=== PATIENT | female | born 1940 | race Caucasian/White ===

== ENCOUNTER → 2021-07-03 13:05 | Outpatient (CLI) | payer MEDICARE, SELFPAY ==
--- NOTE | 2021-07-03 13:05 | MR_ITS ---
PROCEDURE INFORMATION: Exam: MR Lumbar Spine Without Contrast Exam date and time: 07/03/2021 1:05 PM Age: 80 years old Clinical indication: Low back pain; Additional info: Lumbar stenosis. Trouble walking. Lbp worse on RT side. Lt leg pain, numbness, and tingling xyrs. Sent over best images. TECHNIQUE: Imaging protocol: Multiplanar magnetic resonance images of the lumbar spine without intravenous contrast. COMPARISON: No relevant prior studies available. FINDINGS: alignment is grossly normal. signal intensity within the bone marrow is normal. conus terminates at the mid aspect of L1. Soft tissues are unremarkable. Severe diffuse degenerative disc disease throughout the lumbar spine Chronic pars defect L5 suspected. No spondylolisthesis. Severe multilevel central canal narrowing Severe narrowing of the neural foramina L5-S1 bilaterally, L3-L4 and L4-L5 bilaterally T11-T12: Broad-based annular disc bulge. Central canal and neural foramina normal. T12-L1: Broad-based annular disc bulge effaces the anterior aspect of the thecal sac mildly so. Central canal and neural foramina are widely patent. L1-L2: Broad-based annular disc bulge effaces the anterior aspect of the thecal sac mildly so. Central canal is normal. L2-L3: Mild narrowing of the central canal secondary to facet hypertrophic changes, ligamentum flavum hypertrophic changes, and a broad-based annular bulge. Disc lateralizes to the right and left with paucity of fat about the exiting nerve roots L3-L4: Severe narrowing of the central canal secondary to facet hypertrophic changes, ligamentum flavum hypertrophic changes, and a broad-based annular bulge. L4-L5: Severe narrowing of the central canal secondary to facet hypertrophic changes, ligamentum flavum hypertrophic changes, and a broad-based annular bulge. L5-S1: Severe narrowing of the central canal secondary to facet hypertrophic changes, ligamentum flavum hypertrophic changes, and a broad-based annular bulge. Severe narrowing of the right and left neural foramina IMPRESSION: Severe diffuse degenerative disc disease with severe narrowing of the central canal at multiple levels. See above.
== END ==
PROVIDERS: PCP Physician Assistant; Visit Provider Physician Assistant
DX: M48.061 Spinal stenosis, lumbar region without neurogenic claudication (principal)
CPT/HCPCS: 72148; 76376

== ENCOUNTER → 2021-07-30 09:51 | Outpatient (POV) | payer MEDICARE, SELFPAY ==
[2021-07-30 10:27] VITALS: BP 161/84; PULSE 84; RESP 18; O2SAT 96; BMI 23.6
--- NOTE | 2021-07-30 10:28 | HMH.PMCON ---
Assessment and Plan (1) Degenerative disc disease, lumbar Status: Acute Category: Medical Code(s): M51.36 - Other intervertebral disc degeneration, lumbar region (2) Facet arthropathy, lumbar Status: Acute Category: Medical Code(s): M47.816 - Spondylosis without myelopathy or radiculopathy, lumbar region (3) Ligamentum flavum hypertrophy Status: Acute Category: Medical Code(s): M24.28 - Disorder of ligament, vertebrae (4) Spinal stenosis of lumbar region at multiple levels Status: Acute Category: Medical Code(s): M48.061 - Spinal stenosis, lumbar region without neurogenic claudication - Assessment and plan all Dx Assessment and Plan for all problems:: Ordering Physician: Ashanti Huang Date of Service: 07/03/21 Procedure(s): MR lumbar spine wo con Accession Number(s): [id number] cc: Da Chambers MD; Ashanti Huang~ PROCEDURE INFORMATION: Exam: MR Lumbar Spine Without Contrast Exam date and time: 07/03/2021 1:05 PM Age: 80 years old Clinical indication: Low back pain; Additional info: Lumbar stenosis. Trouble walking. Lbp worse on RT side. Lt leg pain, numbness, and tingling xyrs. Sent over best images. TECHNIQUE: Imaging protocol: Multiplanar magnetic resonance images of the lumbar spine without intravenous contrast. COMPARISON: No relevant prior studies available. FINDINGS: alignment is grossly normal. signal intensity within the bone marrow is normal. conus terminates at the mid aspect of L1. Soft tissues are unremarkable. Severe diffuse degenerative disc disease throughout the lumbar spine Chronic pars defect L5 suspected. No spondylolisthesis. Severe multilevel central canal narrowing Severe narrowing of the neural foramina L5-S1 bilaterally, L3-L4 and L4-L5 bilaterally T11-T12: Broad-based annular disc bulge. Central canal and neural foramina normal. T12-L1: Broad-based annular disc bulge effaces the anterior aspect of the thecal sac mildly so. Central canal and neural foramina are widely patent. L1-L2: Broad-based annular disc bulge effaces the anterior aspect of the thecal sac mildly so. Central canal is normal. L2-L3: Mild narrowing of the central canal secondary to facet hypertrophic changes, ligamentum flavum hypertrophic changes, and a broad-based annular bulge. Disc lateralizes to the right and left with paucity of fat about the exiting nerve roots L3-L4: Severe narrowing of the central canal secondary to facet hypertrophic changes, ligamentum flavum hypertrophic changes, and a broad-based annular bulge. L4-L5: Severe narrowing of the central canal secondary to facet hypertrophic changes, ligamentum flavum hypertrophic changes, and a broad-based annular bulge. L5-S1: Severe narrowing of the central canal secondary to facet hypertrophic changes, ligamentum flavum hypertrophic changes, and a broad-based annular bulge. Severe narrowing of the right and left neural foramina IMPRESSION: Severe diffuse degenerative disc disease with severe narrowing of the central canal at multiple levels. See above. Per the MRI, patient has multilevel ligamentum flavum hypertrophic changes with severe narrowing of the central canal. Patient's symptoms correlates with the imaging for spinal stenosis caused by ligamentum flavum hypertrophy. We will schedule the patient for a lumbar epidural steroid injection with epiduragram. I discussed with the patient that she could be a good candidate for a minimally invasive lumbar decompression however this will be based on the epidurogram. Patient is currently not on any blood thinners. Risks and benefits of the procedure have been explained to the patient. Patient would like to proceed with the procedure. Patient has been instructed to contact the clinic with any concerns before the next appointment. Dr. Conway has
== END ==
PROVIDERS: Visit Provider Clinical Nurse Specialist Family Health
DX: M51.36 Other intervertebral disc degeneration, lumbar region (principal); M47.816 Spondylosis without myelopathy or radiculopathy, lumbar region; M24.28 Disorder of ligament, vertebrae; M48.061 Spinal stenosis, lumbar region without neurogenic claudication
CPT/HCPCS: 99202; G0463

== ENCOUNTER 2021-08-12 09:25 | Day surgery (SDC) | payer MEDICARE, SELFPAY ==
[2021-08-12 09:28] VITALS: BP 152/70; PULSE 86; RESP 20; TEMP 36.6; O2SAT 98; BMI 22.9
[2021-08-12 09:45] VITALS: BP 139/70; PULSE 82; RESP 18; O2SAT 99
[2021-08-12 09:46] VITALS: BP 148/76; PULSE 80; RESP 18; O2SAT 99
--- NOTE | 2021-08-12 09:55 | HMH.PMPROC ---
- Procedure Date: 08/12/21 Time: 09:55 Anesthesiologist:: Steve Conway MD Complications:: None Pre-procedure Diagnosis:: Degenerative disc disease of lumbar spine with lumbar radiculopathy symptoms and lumbar spinal stenosis with neurogenic claudication symptoms Post-procedure Diagnosis:: Same Indications for Procedure:: Patient is a pleasant 80-year-old white female who we are treating for low back pain with lumbar radiculopathy symptoms and lumbar spinal stenosis with neurogenic claudication symptoms. She has increasing low back pain and leg pain especially while standing and walking. She has severe degenerative changes with significant ligamentum flavum hypertrophy and severe spinal stenosis at L3-4 and L4-L5. We will plan on doing a lumbar epidural steroid injection with epidurogram to assess levels of stenosis and candidacy for minimally invasive lumbar decompression. Procedure Details:: Informed consent was obtained and the risk and benefits of the procedure was explained to the patient. The patient was taken to the procedure room. The patient was placed prone on the procedure table. The patient was prepped and draped in sterile fashion. C-arm fluoroscopy was used to view the lumbar spine. Skin and subcutaneous tissues were anesthetized using lidocaine. I placed an 18-gauge epidural needle and advanced into the L4-L5 interspace using fluoroscopic guidance and [id number] to air. After confirmation of needle placement in the epidural space with dye I injected 2 mL of lidocaine 1.5% with Depo-Medrol 80 mg. Patient tolerated the procedure well with no complications. Plan and Disposition:: Based on epidurogram she does have significant stenosis at L3-L4 and L4-L5 bilaterally. She is a candidate for minimally invasive lumbar decompression bilateral L3-L4 and L4-L5. We will seek approval for bilateral minimally invasive lumbar decompression at L3-L4 and L4-L5. We will not do a lumbar epidural steroid injection at this procedure as it was very difficult to access the epidural space.
[2021-08-12 10:04] VITALS: BP 136/76; PULSE 77; RESP 20; O2SAT 98
== END 2021-08-12 10:05 | disposition home or self-care (01) ==
LOC: SC.PAINP 09:26
PROVIDERS: PCP Physician Assistant; Visit Provider Anesthesiology
DX: M51.16 Intervertebral disc disorders with radiculopathy, lumbar region (principal); M48.062 Spinal stenosis, lumbar region with neurogenic claudication; E78.5 Hyperlipidemia, unspecified; I10 Essential (primary) hypertension; K21.9 Gastro-esophageal reflux disease without esophagitis; M19.90 Unspecified osteoarthritis, unspecified site
CPT/HCPCS: 62323; J1040; Q9966

== ENCOUNTER → 2021-09-01 09:24 | Outpatient (POV) | payer MEDICARE, SELFPAY ==
[2021-09-01 09:40] VITALS: BP 127/78; PULSE 103; RESP 18; O2SAT 97; BMI 22.3
--- NOTE | 2021-09-01 09:50 | HMH.PAINSOAP ---
[facility] Pain Management SOAP Note Subjective:: Patient is an 80-year-old white female who presents today for follow-up. She recently had a lumbar epidural steroid injection with epidurogram. She got 100% relief and is not having any pain today. Patient was worked up for possible mild procedure and was deemed an appropriate candidate at L3-L4 L4-L5. Patient says because she got significant relief with that she would like to postpone any further treatment until her pain does return. She rates her pain a 0 out of 10 at this time. Review of Systems General: No recent weight changes, no fever, no sleep disturbances Respiratory: No cough, no shortness of air, no recurring pulmonary infections Cardiovascular/peripheral vascular: No chest pain, no palpitations, no edema, no shortness of breath Gastrointestinal: No new onset incontinence, normal bowel movements reported Genitourinary: No new onset incontinence Musculoskeletal: No pain at this time Psychiatric: [Normal mood/affect] Neurological: [Denies weakness in extremities], [denies balance issues] Objective:: Physical exam General: Alert and oriented x3, no acute distress, pleasant and cooperative Lungs: Respirations even and unlabored, symmetrical chest expansion Eyes: PERRL Musculoskeletal: Flexion and extension of [] [spine] non guarded Neurological: Speech clear, no gross sensory deficit Assessment:: Degenerative disc disease lumbar spine with lumbar radiculopathy symptoms, spinal stenosis with neurogenic claudication symptoms Plan:: Patient got 100% relief of low back pain and bilateral lower extremity pain. She is doing well at this time. She does not want to proceed with the mild procedure due to significant relief with injective therapy. We will schedule her for 3-month follow-up. If pain does return before that appointment she can contact clinic. Patient has been instructed to contact the clinic with any concerns before the next appointment. Dr. Conway has reviewed this note and agrees with this plan of care. This note was dictated using voice recognition software and make contain errors or omissions. [facility] History I have reviewed the patient's past medical history: Yes Medical History: Reports:: Gastroesophageal Reflux Disease(GERD), Hyperlipidemia, Hypertension, Renal Insufficiency Denies:: Cancer, Diabetes Mellitus Type 1, Diabetes Mellitus Type 2, Internal Pacemaker, MRSA, Seizures *Have you ever received a pneumonia vaccine?: Yes *Have you received a flu vaccine this season?: Yes Other Medical History: Reports: Arthritis Laterality Cases: Right: Total Hip Replacement Other Surgeries: No: Pacemaker Amputation: No Fractures: Yes (left wrist) - *Social History Smoking Status: Never smoker Alcohol Intake: never Substance Use Type: denies use *Occupational Status:: unemployed Housing: house Household Members: other *Travel in the last 8 weeks: None Family Hx:: Heart Attack, Hypertension, Kidney Disease
== END ==
PROVIDERS: Visit Provider Clinical Nurse Specialist Family Health
DX: M51.16 Intervertebral disc disorders with radiculopathy, lumbar region (principal); M48.062 Spinal stenosis, lumbar region with neurogenic claudication
CPT/HCPCS: 99212; G0463

== ENCOUNTER → 2021-11-30 09:13 | Outpatient (POV) | payer MEDICARE, SELFPAY ==
[2021-11-30 09:20] VITALS: BP 111/78; PULSE 97; RESP 18; TEMP 36.9; O2SAT 97; BMI 23.6
--- NOTE | 2021-11-30 10:54 | P.CONS_ITS ---
[facility] Pain Management SOAP Note Subjective:: Patient is a pleasant 81-year-old female who presents today for follow-up. Patient is currently being treated for degenerative disc disease of lumbar spine with lumbar radiculopathy symptoms, spinal stenosis with neurogenic claudication. Patient is currently being managed with injective therapy and tramadol. When we last saw this patient, she had a lumbar epidural steroid injection with epidurogram that provided 100% relief. Based on her epidurogram, patient is a good candidate for a minimally invasive lumbar decompression at L3- L4 and L4-L5. Today, patient presents with continue his relief after the injection. She states that she slowly started to feel some pain but it is still tolerable. She rates her pain today as 0 out of 10. [facility] #[id number] with an active morphine equivalent of 15. Review of Systems: General: No recent weight changes, no fever, no sleep disturbances Respiratory: No cough, no shortness of air, no recurring pulmonary infections Cardiovascular/peripheral vascular: No chest pain, no palpitations, no edema, no shortness of breath Gastrointestinal: No new onset incontinence, normal bowel movements reported Genitourinary: No new onset incontinence Musculoskeletal: Low back pain Psychiatric: [Normal mood/affect] Neurological: [Denies weakness in extremities], [denies balance issues] Objective:: Physical Exam: General: Alert and oriented x3, no acute distress, pleasant and cooperative, [on room air] Lungs: Respirations even and unlabored, symmetrical chest expansion Eyes: PERRL Musculoskeletal: Flexion and extension of lumbar [spine] somewhat guarded secondary to pain, [antalgic gait noted] Neurological: Speech clear, no gross sensory deficit Assessment:: Degenerative disc disease of the lumbar spine with lumbar radiculopathy symptoms Spinal stenosis with neurogenic claudication Plan:: Patient had a lumbar epidural steroid injection with epidurogram 3 months ago. Patient had significant relief of about 100% after the injection. Based on her epidurogram, patient is a good candidate for a minimally invasive lumbar decompression procedure at L3-L4 and L4-L5. At the moment, patient states that she is still doing well after the injection. We will see her in 1 month to see if she needs a repeat injection. Patient has been instructed to contact the clinic with any concerns before the next appointment. Dr. Conway has reviewed this note and agrees with this plan of care. This note was dictated using voice recognition software and make contain errors or omissions. [facility] History Medical History: Reports:: Gastroesophageal Reflux Disease(GERD), Hyperlipidemia, Hypertension, Renal Insufficiency Denies:: Cancer, Diabetes Mellitus Type 1, Diabetes Mellitus Type 2, Internal Pacemaker, MRSA, Seizures *Have you ever received a pneumonia vaccine?: Yes *Have you received a flu vaccine this season?: Yes Other Medical History: Reports: Arthritis Laterality Cases: Right: Total Hip Replacement Other Surgeries: No: Pacemaker Amputation: No Fractures: Yes (left wrist) - *Social History Smoking Status: Never smoker Alcohol Intake: never Substance Use Type: denies use *Occupational Status:: retired Housing: house Household Members: other *Travel in the last 8 weeks: None Family Hx:: Heart Attack, Hypertension, Kidney Disease
== END ==
PROVIDERS: Visit Provider Student in an Organized Health Care Education/Training Program
DX: M51.16 Intervertebral disc disorders with radiculopathy, lumbar region (principal); M48.00 Spinal stenosis, site unspecified; I73.9 Peripheral vascular disease, unspecified
CPT/HCPCS: 99212; G0463

== ENCOUNTER → 2021-12-31 08:31 | Outpatient (POV) | payer MEDICARE, SELFPAY ==
[2021-12-31 08:46] VITALS: BP 116/64; PULSE 85; RESP 18; TEMP 36.7; O2SAT 96; BMI 23.4
--- NOTE | 2021-12-31 09:48 | HMH.PAINSOAP ---
[facility] Pain Management SOAP Note Subjective:: Patient is a pleasant 81-year-old female who presents today for follow-up. Patient is current being treated for degenerative disc disease of lumbar spine with lumbar radiculopathy symptoms, spinal stenosis with neurogenic claudication. Patient is currently being managed with injective therapy and tramadol. Patient typically gets 100% relief from each lumbar epidural steroid injection. When we last saw this patient, she had a lumbar epidural steroid injection with epidurogram. She was found to be a good candidate for minimally invasive lumbar decompression at L3-L4 and L4-L5. Today, patient presents with worsening low back pain that radiates to bilateral lower extremities. She reports heaviness on bilateral lower extremities whenever she walks. She has a positive shopping cart sign sign. Rates her pain as 6 out of 10. She wants to know if she can get scheduled for an injection. Xavier [phone] with an active morphine equivalent of 0. Review of Systems: General: No recent weight changes, no fever, no sleep disturbances Respiratory: No cough, no shortness of air, no recurring pulmonary infections Cardiovascular/peripheral vascular: No chest pain, no palpitations, no edema, no shortness of breath Gastrointestinal: No new onset incontinence, normal bowel movements reported Genitourinary: No new onset incontinence Musculoskeletal: Low back pain Psychiatric: [Normal mood/affect] Neurological: [Denies weakness in extremities], [denies balance issues] Objective:: Physical Exam: General: Alert and oriented x3, no acute distress, pleasant and cooperative Lungs: Respirations even and unlabored, symmetrical chest expansion Eyes: PERRL Musculoskeletal: Flexion and extension of lumbar [spine] somewhat guarded secondary to pain, [antalgic gait noted] Neurological: Speech clear, no gross sensory deficit Assessment:: Degenerative disc disease of the lumbar spine with lumbar radiculopathy symptoms Spinal stenosis with neurogenic claudication Plan:: We have been managing this patient's low back pain with injective therapy. She gets 100% relief after each lumbar epidural steroid injection. She had epidurogram at her last injection. She was found to be a good candidate for a minimally invasive lumbar decompression procedure bilaterally at L3-L4 and L4-L5. She has a positive shopping cart syndrome. She feels heaviness on bilateral legs whenever she walks for longer periods of time. We will schedule the patient for a repeat lumbar epidural steroid injection at L4-L5. Risks and benefits of the procedure have been explained to the patient. Patient would like to proceed with the procedure. Patient is not on any blood thinners. With the patient get significant relief again with this injection, we will schedule the patient for a minimally invasive lumbar decompression procedure bilaterally at L3-L4 and L4-L5. Patient has been instructed to contact the clinic with any concerns before the next appointment. Dr. Conway has reviewed this note and agrees with this plan of care. This note was dictated using voice recognition software and make contain errors or omissions. [facility] History Medical History: Reports:: Gastroesophageal Reflux Disease(GERD), Hyperlipidemia, Hypertension, Renal Insufficiency Denies:: Cancer, Diabetes Mellitus Type 1, Diabetes Mellitus Type 2, Internal Pacemaker, MRSA, Seizures *Have you ever received a pneumonia vaccine?: Yes *Have you received a flu vaccine this season?: Yes Other Medical History: Reports: Arthritis Laterality Cases: Right: Total Hip Replacement Other Surgeries: No: Pacemaker Amputation: No Fractures: Yes (left wrist) - *Social History Smoking Status: Never smoker Alcohol Intake: never Substance Use Type: denies use *Occupational Status:: retired Housing: house Household Members: other *Travel in the last 8 weeks: None Family Hx:: Heart Attack, Hypertension, Kidn
== END ==
PROVIDERS: Visit Provider Student in an Organized Health Care Education/Training Program
DX: M51.16 Intervertebral disc disorders with radiculopathy, lumbar region (principal); M48.061 Spinal stenosis, lumbar region without neurogenic claudication
CPT/HCPCS: 99212; G0463

== ENCOUNTER 2022-01-08 07:48 | Day surgery (SDC) | payer MEDICARE, SELFPAY ==
[2022-01-08 08:09] VITALS: BP 140/58; PULSE 77; RESP 20; TEMP 36.6; O2SAT 98; BMI 23.6
[2022-01-08 08:41] VITALS: BP 151/68; PULSE 82; RESP 18; O2SAT 98
[2022-01-08 08:43] VITALS: BP 152/81; PULSE 83; RESP 18; O2SAT 99
--- NOTE | 2022-01-08 08:50 | HMH.PMPROC ---
- Procedure Date: 01/08/22 Time: 08:50 Anesthesiologist:: Jason Wilder CRNA Complications:: None Pre-procedure Diagnosis:: Of disc disease lumbar spine multilevels. Lumbar radiculopathy symptoms. Post-procedure Diagnosis:: Same Indications for Procedure:: Very pleasant 81-year-old female that comes to our clinic for more epidural steroid injection at the L4-5 level. Patient is status post 1 lumbar epidural steroid injection. She reports significant provement terms of her low back pain as well as bilateral hip and leg pain. Procedure Details:: Procedure: Lumbar epidural steroid injection under fluoroscopy Informed consent was obtained and the risks and benefits of the procedure were explained to the patient. The patient was taken to the procedure room and noninvasive monitors placed, including noninvasive blood pressure cuff and pulse oximeter. The back was viewed using C-arm Fluoroscopy and prepped using Betadine as a cleansing solution and the L4-L5 interspace was palpated. Skin and subcutaneous tissues were anesthetized using lidocaine 1.5% and a 25-gauge needle. After this, an 18-gauge Touhy epidural needle was placed into the L4-L5 interspace and advanced using fluoroscopic guidance and loss of resistance to air until the epidural space was encountered. After confirmation of needle placement in the epidural space, with dye, a solution containing lidocaine 1.5%, 4 mL and Depo-Medrol 80 mg were incrementally injected into the lumbar epidural space. The patient tolerated the procedure well with no complications. The patient was observed in the Pain Clinic and then discharged home neurologically intact. Plan and Disposition:: Patient was discharged without incident.
[2022-01-08 08:58] VITALS: BP 142/68; PULSE 69; RESP 20; O2SAT 98
== END 2022-01-08 08:59 | disposition home or self-care (01) ==
LOC: SC.PAINP 07:49
PROVIDERS: PCP Physician Assistant; Visit Provider Nurse Anesthetist, Certified Registered
DX: M51.16 Intervertebral disc disorders with radiculopathy, lumbar region (principal); K21.9 Gastro-esophageal reflux disease without esophagitis; E78.5 Hyperlipidemia, unspecified; I10 Essential (primary) hypertension; N28.9 Disorder of kidney and ureter, unspecified
CPT/HCPCS: 62323; J1040

== ENCOUNTER → 2022-01-26 08:44 | Outpatient (POV) | payer MEDICARE, SELFPAY ==
--- NOTE | 2022-01-26 08:57 | P.CONS_ITS ---
[facility] Pain Management SOAP Note Subjective:: Patient is a pleasant 82-year-old female who presents today for follow-up after a lumbar epidural steroid injection at L4-L5 on January 08, 2022. Patient is currently being treated for degenerative disc disease of the lumbar spine with lumbar radiculopathy symptoms, spinal stenosis with neurogenic claudication. After her procedure, patient had significant relief of 90 to 100% and rates her pain today as 5 out of 10. Patient typically gets good relief after each epidural injections. This is her third lumbar epidural steroid injections since July. The first 1 lasted for about 4 to 5 months and the second 1 about 5 to 6 weeks. She is found to be a good candidate for the minimally invasive rhea mbar decompression procedure at L3-L4 and L4-L5. We have talked to the patient in regards to this procedure. She is a bit hesitant to move forward with this procedure at this time and wants to see how long this third injection lasts. For pain, she takes tramadol 50mg as needed that is prescribed by an outside clinic. Xavier [phone], MEQ 0. Review of Systems: General: No recent weight changes, no fever, no sleep disturbances Respiratory: No cough, no shortness of air, no recurring pulmonary infections Cardiovascular/peripheral vascular: No chest pain, no palpitations, no edema, no shortness of breath Gastrointestinal: No new onset incontinence, normal bowel movements reported Genitourinary: No new onset incontinence Musculoskeletal: Low back pain Psychiatric: [Normal mood/affect] Neurological: [Denies weakness in extremities], [denies balance issues] Objective:: Physical Exam: General: Alert and oriented x3, no acute distress, pleasant and cooperative Lungs: Respirations even and unlabored, symmetrical chest expansion Eyes: PERRL Musculoskeletal: Flexion and extension of lumbar [spine] somewhat guarded secondary to pain, [antalgic gait noted] Neurological: Speech clear, no gross sensory deficit Assessment:: Degenerative disc disease of lumbar spine with lumbar radiculopathy symptoms, spinal stenosis with neurogenic claudication Plan:: Patient is still doing well with the lumbar epidural steroid injection. We will follow-up with this patient in 2 months to see if she would like to move forward with minimally invasive lumbar decompression procedure or if she needs another injection. Patient has been instructed to contact the clinic with any concerns before the next appointment. Dr. Conway has reviewed this note and agrees with this plan of care. This note was dictated using voice recognition software and make contain errors or omissions. [facility] History Medical History: Reports:: Gastroesophageal Reflux Disease(GERD), Hyperlipidemia, Hypertension, Renal Insufficiency Denies:: Cancer, Diabetes Mellitus Type 1, Diabetes Mellitus Type 2, Internal Pacemaker, MRSA, Seizures *Have you ever received a pneumonia vaccine?: Yes *Have you received a flu vaccine this season?: Yes Other Medical History: Reports: Arthritis Laterality Cases: Right: Total Hip Replacement Other Surgeries: No: Pacemaker Amputation: No Fractures: Yes (left wrist) - *Social History Smoking Status: Never smoker Alcohol Intake: never Substance Use Type: denies use *Occupational Status:: other Housing: house Household Members: other *Travel in the last 8 weeks: Inside the [place] Family Hx:: Heart Attack, Hypertension, Kidney Disease
[2022-01-26 09:00] VITALS: BP 140/73; PULSE 78; RESP 18; TEMP 36.7; O2SAT 97; BMI 23.2
== END ==
PROVIDERS: Visit Provider Student in an Organized Health Care Education/Training Program
DX: M51.16 Intervertebral disc disorders with radiculopathy, lumbar region (principal); M48.062 Spinal stenosis, lumbar region with neurogenic claudication
CPT/HCPCS: 99212; G0463

== ENCOUNTER → 2022-03-25 09:27 | Outpatient (POV) | payer MEDICARE, SELFPAY ==
[2022-03-25 09:42] VITALS: BP 141/75; PULSE 78; RESP 20; O2SAT 94; BMI 23.8
--- NOTE | 2022-03-25 10:45 | HMH.PAINSOAP ---
[facility] Pain Management SOAP Note Subjective:: Patient is a pleasant 81-year-old female who presents today for follow-up. We are currently treating the patient for degenerative disc disease of lumbar spine with lumbar radiculopathy symptoms, spinal stenosis and neurogenic claudication. Patient rates her pain a 5 out of 10 today. She states her pain is all in her low back that radiates down her hip and left leg. She denies any new trauma or injury to the site. She describes this pain as a aching throbbing sensation that is worse with activity. We have done injective therapy in the past with significant improvement of her symptoms. Her last injection was a lumbar epidural steroid injection at L4-L5 on January 08, 2022 in which that she received 90 to 100% improvement. This was the patient's third LESI. Patient does present as a good candidate for a minimally invasive lumbar decompression procedure at L3-L4 and L4-L5. We have discussed with the patient regarding this procedure however she was hesitant to proceed forward. Patient does manage her pain with tramadol 50 mg 3 times a day that is prescribed by Bonita Greer. She also uses compounding cream. Patient states these medications do help significantly improve and manage her pain. She denies any side effects from these medications. Her Xavier is [id number]. It has been reviewed and appropriate. Review of Systems: General: No recent weight changes, no fever, no sleep disturbances Respiratory: No cough, no shortness of air, no recurring pulmonary infections Cardiovascular/peripheral vascular: No chest pain, no palpitations, no edema, no shortness of breath Gastrointestinal: No new onset incontinence, normal bowel movements reported Genitourinary: No new onset incontinence Musculoskeletal: Low back pain, left leg pain, hip pain Psychiatric: [Normal mood/affect] Neurological: [Denies weakness in extremities], [denies balance issues] Objective:: Physical Exam: General: Alert and oriented x3, no acute distress, pleasant and cooperative Lungs: Respirations even and unlabored, symmetrical chest expansion Eyes: PERRL Musculoskeletal: Flexion and extension of lumbar [spine] somewhat guarded secondary to pain, [antalgic gait noted] Neurological: Speech clear, no gross sensory deficit Assessment:: Degenerative disc disease of lumbar spine with lumbar radiculopathy symptoms, spinal stenosis and neurogenic claudication Plan:: Patient is having worsening low back pain with radiating symptoms to her left hip and leg. She has had significant improvement in the past with her lumbar epidural steroid injections. I have discussed with the patient regarding having a repeat injection at this time. Risk and benefits were discussed with the patient. She would like to proceed forward with this injection. We will schedule the patient for a lumbar epidural steroid injection at L4-L5 at today's visit. Patient is not currently on any blood thinners. Patient has been instructed to contact the clinic with any concerns before the next appointment. Dr. Conway has reviewed this note and agrees with this plan of care. This note was dictated using voice recognition software and make contain errors or omissions. [facility] History I have reviewed the patient's past medical history: Yes Medical History: Reports:: Gastroesophageal Reflux Disease(GERD), Hyperlipidemia, Hypertension, Renal Insufficiency Denies:: Cancer, Diabetes Mellitus Type 1, Diabetes Mellitus Type 2, Internal Pacemaker, MRSA, Seizures *Have you ever received a pneumonia vaccine?: Yes *Have you received a flu vaccine this season?: Yes Other Medical History: Reports: Arthritis Laterality Cases: Right: Total Hip Replacement Other Surgeries: No: Pacemaker Amputation: No Fractures: Yes (left wrist) - *Social History Smoking Status: Never smoker Alcohol Intake: never Substance Use Type: denies use *Occupational Status:: other Housing: house Household Members: [facility]
== END ==
PROVIDERS: PCP Family Medicine; Visit Provider Nurse Practitioner Family
DX: M51.16 Intervertebral disc disorders with radiculopathy, lumbar region (principal); M48.062 Spinal stenosis, lumbar region with neurogenic claudication
CPT/HCPCS: 99212; G0463

== ENCOUNTER 2022-04-09 10:45 | Day surgery (SDC) | payer MEDICARE, SELFPAY ==
[2022-04-09 10:54] VITALS: BP 150/73; PULSE 82; TEMP 36.9; O2SAT 97; BMI 23.0
--- NOTE | 2022-04-09 11:15 | P.PCN_ITS ---
- Procedure Date: 04/09/22 Time: 11:15 Anesthesiologist:: Jason Wilder CRNA Complications:: None Pre-procedure Diagnosis:: Degenerative disc disease lumbar spine multilevels. Lumbar radiculopathy symptoms. Post-procedure Diagnosis:: Same Indications for Procedure:: Patient is a very pleasant 81-year-old female that comes to our injection clinic today for a second lumbar epidural steroid injection at L4-5 level. She reports significant improvement after receiving her first injection. However, some of her bilateral leg radicular symptoms are returning to some degree. She rates her pain overall 5/10. Procedure Details:: Procedure: Lumbar epidural steroid injection under fluoroscopy Informed consent was obtained and the risks and benefits of the procedure were explained to the patient. The patient was taken to the procedure room and noninvasive monitors placed, including noninvasive blood pressure cuff and pulse oximeter. The back was viewed using C-arm Fluoroscopy and prepped using Betadine as a cleansing solution and the L4-L5 interspace was palpated. Skin and subcutaneous tissues were anesthetized using lidocaine 1.5% and a 25-gauge need le. After this, an 18-gauge Touhy epidural needle was placed into the L4-L5 interspace and advanced using fluoroscopic guidance and loss of resistance to air until the epidural space was encountered. After confirmation of needle placement in the epidural space, with dye, a solution containing lidocaine 1.5%, 4 mL and Depo-Medrol 80 mg were incrementally injected into the lumbar epidural space. The patient tolerated the procedure well with no complications. The patient was observed in the Pain Clinic and then discharged home neurologically intact. Plan and Disposition:: Patient was discharged without incident.
[2022-04-09 11:20] VITALS: BP 135/62; PULSE 78; RESP 18; O2SAT 96
== END 2022-04-09 11:21 | disposition home or self-care (01) ==
LOC: SC.PAINP 10:46
PROVIDERS: PCP Family Medicine; Visit Provider Nurse Anesthetist, Certified Registered
DX: M51.16 Intervertebral disc disorders with radiculopathy, lumbar region (principal)
CPT/HCPCS: 62323; J1040

== ENCOUNTER → 2022-04-21 10:45 | Outpatient (POV) | payer MEDICARE, SELFPAY ==
[2022-04-21 10:55] VITALS: BP 130/60; PULSE 82; RESP 18; TEMP 37.1; O2SAT 96; BMI 22.6
--- NOTE | 2022-04-21 12:43 | A.OFFVIS_ITS ---
[facility] Pain Management SOAP Note Subjective:: Patient is a pleasant 81-year-old female who presents today for follow-up of lumbar epidural steroid injection at L4-L5 on 04/09/2022. We are currently treating the patient for degenerative disc disease of lumbar spine multilevels with lumbar radiculopathy symptoms. Patient states that she has had significant improvement following this injection. She states 50 to 60% relief and feels like it is still helping in her low back. Today she rates her pain a 6 out of 10 and states her pain is primarily in her bilateral thighs and calves. Patient states that this is a cramping, throbbing sensation that is worse at night. She states this is affecting how she sleeps and that she is having to get up multiple times during the night in order to relieve the pain. Patient denies any new injury or trauma. We have done injective therapy in the past for this patient that has provided significant improvement including lumbar epidurals. This is the patient's fourth epidural. Patient is currently managed with tramadol 50 mg 3 times a day that is prescribed by Bonita Greer. And gabapentin 300 mg twice a day prescribed by Ashanti Huang. Patient denies any side effects from these medications. She states these medications do adequately help manage her pain. Her Xavier is [id number]. It is been reviewed and appropriate Review of Systems: General: No recent weight changes, no fever, no sleep disturbances Respiratory: No cough, no shortness of air, no recurring pulmonary infections Cardiovascular/peripheral vascular: No chest pain, no palpitations, no edema, no shortness of breath Gastrointestinal: No new onset incontinence, normal bowel movements reported Genitourinary: No new onset incontinence Musculoskeletal: Bilateral thigh and calf pain Psychiatric: [Normal mood/affect] Neurological: [Denies weakness in extremities], [denies balance issues] Objective:: Physical Exam: General: Alert and oriented x3, no acute distress, pleasant and cooperative Lungs: Respirations even and unlabored, symmetrical chest expansion Eyes: PERRL Musculoskeletal: Flexion and extension of lumbar [spine] somewhat guarded secondary to pain, [antalgic gait noted] Neurological: Speech clear, no gross sensory deficit Assessment:: Degenerative disc disease of lumbar spine multilevels with lumbar radiculopathy symptoms, restless leg syndrome Plan:: Patient continues to have worsening cramping and throbbing of her bilateral thighs and calves primarily at night. I have discussed with the patient regarding trying ropinirole 0.25 mg at night. I will prescribe this medication and give her a 2-week supply. Patient will follow-up in 2 weeks. Patient will return to clinic for follow-up, reevaluation of symptoms and medication refill if indicated. Patient has been instructed to contact the clinic with any concerns before the next appointment. Dr. Conway has reviewed this note and agrees with this plan of care. This note was dictated using voice recognition software and make contain errors or omissions. [facility] Medical History (Updated 10/26/21 @ 15:07 by BETI Rey) Spinal stenosis of lumbar region at multiple levels Social History Smoking Status: Never smoker alcohol intake: never substance use type: denies use current occupational status: other household members: other housing: house caffeine: Yes
== END | disposition home or self-care (01) ==
PROVIDERS: Visit Provider Nurse Practitioner Family
DX: M51.16 Intervertebral disc disorders with radiculopathy, lumbar region (principal); G25.81 Restless legs syndrome
CPT/HCPCS: 99212; G0463

== ENCOUNTER → 2022-05-03 10:55 | Outpatient (POV) | payer MEDICARE, SELFPAY ==
--- NOTE | 2022-05-03 11:30 | EXP.PAIN.SOA ---
[facility] Pain Management SOAP Note Subjective:: PreviousPatient is a pleasant 81-year-old female who presents today for follow-up. We are currently treating the patient for degenerative disc disease of lumbar spine multilevels with lumbar radiculopathy symptoms, restless leg syndrome. Srikanth at our last visit she was given ropinirole 0.25 mg at night with a 14-day supply. The patient states that she has had improvement of her symptoms in her thighs and calves following this medication. Patient denies any side effects from this. She states her blood pressure has been good with no increased episodes of hypertension. Today she rates her pain a 5 out of 10 and states it is primarily in her legs. She states this is a cramping, throbbing sensation that is worse at night in her thighs and calves. Patient denies any new trauma or injury. Patient denies any change in the location or type of pain she experiences. Patient has had injections in the past that have provided significant improvement including lumbar epidurals. Patient has had 4 lumbar epidurals. Patient is currently managed with tramadol 50 mg 3 times a day by Bonita Greer. She is also prescribed gabapentin 300 mg twice a day by Ashanti Huang. Patient denies any side effects from this medications. Patient states these medications have been helping manage her pain. Patient has also been given compounding cream that she states has provided significant improvement of her symptoms. Her Xavier is [id number]. Its been reviewed and appropriate. Review of Systems: General: No recent weight changes, no fever, no sleep disturbances Respiratory: No cough, no shortness of air, no recurring pulmonary infections Cardiovascular/peripheral vascular: No chest pain, no palpitations, no edema, no shortness of breath Gastrointestinal: No new onset incontinence, normal bowel movements reported Genitourinary: No new onset incontinence Musculoskeletal: [Bilateral thigh and leg pain, low back pain] Psychiatric: [Normal mood/affect] Neurological: [Denies weakness in extremities], [denies balance issues] Objective:: Physical Exam: General: Alert and oriented x3, no acute distress, pleasant and cooperative Lungs: Respirations even and unlabored, symmetrical chest expansion Eyes: PERRL Musculoskeletal: Flexion and extension of lumbar [spine] somewhat guarded secondary to pain, [antalgic gait noted] Neurological: Speech clear, no gross sensory deficit Assessment:: Degenerative disc disease of lumbar spine multilevels with lumbar radiculopathy symptoms, restless leg syndrome Plan:: Patient has had some improvement of her bilateral lower extremity symptoms following the addition of ropinirole 0.25 mg at night. I will refill this patient's medication and provide a 1 month supply. Patient will return to clinic in 1 month for follow-up and reevaluation of symptoms as well as medication refill. Patient has been advised of risks of oversedation with the prescribed medication. Narcan has been offered to the patient in the event of oversedation. Patient has been advised that a family member should also be educated regarding administration of Narcan. Patient has been instructed to contact the clinic with any concerns before the next appointment. Dr. Conway has reviewed this note and agrees with this plan of care. This note was dictated using voice recognition software and make contain errors or omissions. [facility] Medical History (Updated 10/26/21 @ 15:07 by BETI Rey) Spinal stenosis of lumbar region at multiple levels Social History Smoking Status: Never smoker alcohol intake: never substance use type: denies use current occupational status: other Travel in the last 8 weeks: None household members: other housing: house caffeine: Yes
[2022-05-03 11:42] VITALS: BP 144/69; PULSE 84; RESP 18; TEMP 36.3; O2SAT 97; BMI 22.3
== END | disposition home or self-care (01) ==
PROVIDERS: Visit Provider Nurse Practitioner Family
DX: M51.16 Intervertebral disc disorders with radiculopathy, lumbar region (principal); G25.81 Restless legs syndrome
CPT/HCPCS: 99212; G0463

== ENCOUNTER → 2022-05-31 10:32 | Outpatient (POV) | payer MEDICARE, SELFPAY ==
[2022-05-31 10:42] VITALS: BP 123/64; PULSE 86; RESP 18; TEMP 36.9; O2SAT 95; BMI 21.9
--- NOTE | 2022-05-31 11:04 | EXP.PAIN.SOA ---
[facility] Pain Management SOAP Note Subjective:: Patient is a pleasant 82-year-old female who presents today for follow-up. Patient is currently being treated for degenerative disc disease of lumbar spine with lumbar radiculopathy symptoms, restless leg syndrome. We have been managing this patient with injective therapy. She last had a lumbar epidural steroid injection at L4-L5 on 04/09/2022. She typically gets 3 to 4 months of relief from each injection. Denies any issues after the injection. She has been able to increase her activity since injections. We are also managing this patient with ropinirole for her restless leg syndrome. She is currently on 0.25 mg at bedtime. Since starting her medication, patient has been able to sleep better and has had significant improvement with her symptoms. For pain, she is also prescribed gabapentin 300 mg twice a day and tramadol 50 mg 3 times a day by Dr. Bonita Greer. Denies any side effects from these medications. She is needing refill on her ropinirole today. Xavier [phone] with an active morphine equivalent of 15. Review of Systems: General: No recent weight changes, no fever, no sleep disturbances Respiratory: No cough, no shortness of air, no recurring pulmonary infections Cardiovascular/peripheral vascular: No chest pain, no palpitations, no edema, no shortness of breath Gastrointestinal: No new onset incontinence, normal bowel movements reported Genitourinary: No new onset incontinence Musculoskeletal: Low back pain Psychiatric: [Normal mood/affect] Neurological: [Denies weakness in extremities], [denies balance issues] Objective:: Physical Exam: General: Alert and oriented x3, no acute distress, pleasant and cooperative Lungs: Respirations even and unlabored, symmetrical chest expansion Eyes: PERRL Musculoskeletal: Flexion and extension of lumbar [spine] somewhat guarded secondary to pain, [antalgic gait noted] Neurological: Speech clear, no gross sensory deficit Assessment:: Degenerative disc disease of the lumbar spine with lumbar radiculopathy symptoms, restless leg syndrome Plan:: We will continue the patient's ropinirole 0.25 mg at bedtime. We will provide the patient with 3 months worth of refill. I also discussed with the patient that her PCP can continue this medication if it is okay with them. If not, we can continue this medication. We will schedule the patient for a repeat lumbar epidural straight injection at the beginning of July. Again, each lumbar epidural steroid injection provides the patient 3 to 4 months of relief. She is not on any blood thinner. Patient has been instructed to contact the clinic with any concerns before the next appointment. Dr. Conway has reviewed this note and agrees with this plan of care. This note was dictated using voice recognition software and make contain errors or omissions. [facility] Medical History (Updated 10/26/21 @ 15:07 by BETI Rey) Spinal stenosis of lumbar region at multiple levels Social History Smoking Status: Never smoker alcohol intake: never substance use type: denies use current occupational status: retired Travel in the last 8 weeks: None household members: other housing: house caffeine: Yes
== END | disposition home or self-care (01) ==
PROVIDERS: Visit Provider Nurse Practitioner Family
DX: M51.16 Intervertebral disc disorders with radiculopathy, lumbar region (principal); G25.81 Restless legs syndrome; Z79.899 Other long term (current) drug therapy
CPT/HCPCS: 99212; G0463

== ENCOUNTER 2024-01-19 10:12 | Outpatient (CLI) | payer MEDICARE, SELFPAY ==
[2024-01-19 19:02] LABS: Basophils # 0.1 K/mm3 (0-0.2); Eosinophils # 0.1 K/mm3 (0.0-0.4); Eosinophils % 1.8 % (0.1-12.0); Hematocrit 38.4 % (37.0-47.0); Hemoglobin 12.1 g/dL (12.2-16.2); Lymphocytes # 1.2 K/mm3 (0.7-4.5); Lymphocytes % 22.6 % (10-50); Mean Corpuscular HGB Conc 31.5 g/dL (31.8-35.4); Mean Corpuscular Hemoglobin 30.8 pg (27.0-31.2); Mean Corpuscular Volume 97.9 fl (81-99); Mean Platelet Volume 9.5 fl (7.4-10.4); Monocytes # 0.3 K/mm3 (0.1-1.0); Monocytes % 6.2 % (1.7-9.3); Neutrophils # 3.5 K/mm3 (1.8-7.8); Neutrophils % 68.5 % (37.0-80.0); Platelet Count 364 K/mm3 (142-424); Red Blood Count 3.92 M/mm3 (4.20-5.40); Red Cell Distribution Width 13.8 % (11.5-17.5); White Blood Count 5.1 K/mm3 (4.8-10.8)
[2024-01-19 19:22] LABS: Alanine Aminotransferase 26 U/L (12-78); Albumin Level 4.1 g/dl (3.5-5.0); Albumin/Globulin Ratio 1.6 (1.1-1.8); Alkaline Phosphatase 59 U/L (38-126); Anion Gap 13.1 mEq/L (5-15); Aspartate Amino Transferase 39 U/L (14-36); Bilirubin,Total 0.4 mg/dl (0.2-1.3); Blood Urea Nitrogen 33 mg/dl (7-17); Calcium 9.9 mg/dl (8.4-10.2); Carbon Dioxide 28 mmol/L (22.0-30.0); Chloride 102 mmol/L (98-107); Chol/HDL Ratio 2.7 (1-3.5); Cholesterol 211 mg/dl (140-200); Estimated Glomerular Filt Rate 47 ml/min (>60); GFR (African American) 57 ML/MIN (>60); Globulin 2.5 g/dL (1.3-3.2); Glucose 80 mg/dl (74-100); HDL Cholesterol 77 mg/dl (40-60); Potassium 4.1 mmoL/L (3.5-5.1); Sodium 139 mmol/L (136-145); Total Protein,Serum 6.6 g/dl (6.3-8.2); Triglycerides 188 mg/dl (30-150); VLDL Cholesterol 38 mg/dL (0-40)
[2024-01-19 19:32] LABS: Direct LDL Cholesterol 105.94 mg/dL (100-129)
[2024-01-19 19:49] LABS: Hemoglobin A1C 5.2 % (4.0-6.0)
[2024-01-19 19:54] LABS: Thyroid Stimulating Hormone 0.98 uIU/mL (0.465-4.68)
[2024-01-19 20:35] LABS: Vitamin B12 > 1000 pg/mL (239-931)
== END 2024-01-19 23:59 | disposition home or self-care (01) ==
LOC: LAB.DROPOF 01-21 10:13
PROVIDERS: PCP Internal Medicine; Visit Provider Internal Medicine
DX: E78.5 Hyperlipidemia, unspecified (principal); R53.83 Other fatigue; E55.9 Vitamin D deficiency, unspecified; R73.09 Other abnormal glucose
CPT/HCPCS: 80053; 80061; 82306; 82607; 83036; 84443; 85025

== ENCOUNTER 2024-02-13 11:37 | Outpatient (CLI) | payer MEDICARE, SELFPAY | END 2024-02-13 23:59 | disposition home or self-care (01) | LOC: LAB.DROPOF 02-14 11:37 | PROVIDERS: PCP Internal Medicine; Visit Provider Internal Medicine | DX: N39.0 Urinary tract infection, site not specified (principal); B96.20 Unspecified Escherichia coli [E. coli] as the cause of diseases classified elsewhere | CPT/HCPCS: 87086; 87088; 87186 ==

== ENCOUNTER 2024-03-05 09:45 | Outpatient (CLI) | payer MEDICARE, SELFPAY | END 2024-03-05 23:59 | disposition home or self-care (01) | LOC: LAB.DROPOF 03-06 08:32 | PROVIDERS: PCP Family Medicine; Visit Provider Family Medicine | DX: N39.0 Urinary tract infection, site not specified (principal) | CPT/HCPCS: 87086; 87088; 87186 ==

== ENCOUNTER 2024-12-31 16:21 | Outpatient (CLI) | payer MEDICARE, SELFPAY ==
[2024-12-31 15:56] LABS: Microscopic,Cath URINE MICROSCOPIC (MICROSCOPIC)
[2024-12-31 19:58] LABS: Appearance,Urine/Cath CLEAR (Clear); Bilirubin,Cath Negative (Negative); Blood, Urine/Cath Negative (Negative); Color,Urine/Cath YELLOW (Yellow); Glucose,Urine/Cath (UA) Negative (Negative); Ketones,Urine/Cath Negative (Negative); Leukocyte Esterase,Cath 1+ (Negative); Nitrate,Cath Negative (Negative); Protein,Urine/Cath Negative (Negative); Specific Gravity, Urine/Cath 1.015 (1.005-1.030); Urobilinogen,Cath 0.2 EU/dl (0.2)
[2024-12-31 20:20] LABS: Bacteria,Urine/Cath 2+ /lpf
== END 2024-12-31 23:59 | disposition home or self-care (01) ==
LOC: LAB.DROPOF 16:21
PROVIDERS: PCP Urology; Visit Provider Urology
DX: N39.41 Urge incontinence (principal); N39.3 Stress incontinence (female) (male)
CPT/HCPCS: 81001; 87086